=== PATIENT | male | born 1990 | race African-American/Black ===

== ENCOUNTER 2021-03-24 17:03 | Emergency (ER) | payer SELFPAY ==
[2021-03-24 17:24] VITALS: BP 127/85; PULSE 100; BMI 45.5
[2021-03-24 19:16] LABS: BASO % 0.5 % (0-2.0); EOS % 0.8 % (0-4.5); HEMATOCRIT 42.2 % (35.4-49); HEMOGLOBIN 14.8 GM/dL (11.7-16.9); LYMPH % 10.6 % (8-40); MCH 29.6 pg (25.7-33.7); MEAN CELL VOLUME 84.5 fl (80-96); MEAN PLT VOLUME 8.1 fl (7.5-11.1); MONO % 7.6 % (3.8-10.2); NEUT % 80.5 % (42.8-82.8); PLATELET COUNT 307 10^3/uL (134-434); RBC 4.99 M/mm3 (4.00-5.60); RDW 15.3 % (11.9-15.9); WHITE BLOOD COUNT 8.3 K/mm3 (4.0-10.0)
[2021-03-24 19:36] LABS: CHLORIDE 105 mmol/L (98-107); SODIUM 138 mmol/L (136-145)
[2021-03-24 19:38] LABS: ALBUMIN 4.3 g/dl (3.4-5.0); ANION GAP 9 MMOL/L (8-16); BLOOD UREA NITROGEN 16.3 mg/dL (7-18); CALCIUM 9.6 mg/dL (8.5-10.1); CO2 24 mmol/L (21-32); GLUCOSE,RANDOM 92 mg/dL (74-106)
[2021-03-24 19:38] LABS: URINE APPEARANCE CLEAR; URINE BILIRUBIN NEGATIVE (NEGATIVE); URINE COLOR DK YELLOW; URINE GLUCOSE (UA) NEGATIVE (NEGATIVE); URINE KETONE 2+ (NEGATIVE); URINE LEUK ESTERASE NEGATIVE (NEGATIVE); URINE NITRITE NEGATIVE (NEGATIVE); URINE PROTEIN NEGATIVE (NEGATIVE)
[2021-03-24 19:41] LABS: SGOT/AST 29 U/L (15-37); SGPT/ALT 39 U/L (13-61)
[2021-03-24 19:42] LABS: CREATININE 0.9 mg/dL (0.55-1.3)
[2021-03-24 19:43] LABS: BILIRUBIN,TOTAL 0.5 mg/dL (0.2-1); TOT PROT 8.3 g/dl (6.4-8.2)
[2021-03-24 19:44] LABS: ALK PHOS 67 U/L (45-117)
[2021-03-24] MEDS ORDERED: hydrOXYzine PAMOATE 50 MG CAPSULE (FP) PO ONE (20:15)
[2021-03-24 20:27] LABS: URINE BARBITURATES NEGATIVE (NEGATIVE)
[2021-03-24 20:28] LABS: COCAINE, UR NEGATIVE (NEGATIVE); METHADONE, UR NEGATIVE (NEGATIVE); OPIATES, URI NEGATIVE (NEGATIVE); URINE BENZODIAZEPINES NEGATIVE (NEGATIVE)
[2021-03-24 20:29] LABS: PHENCYCLIDINE,URINE NEGATIVE (NEGATIVE)
[2021-03-24 20:39] LABS: URINE AMPHETAMINES POSITIVE (NEGATIVE)
[2021-03-24] MEDS ORDERED: hydrOXYzine PAMOATE 50 MG CAPSULE (FP) ONE (20:40)
== END 2021-03-24 22:44 | disposition home or self-care (01) ==
LOC: JER 17:03
DX: F19.94 Other psychoactive substance use, unspecified with psychoactive substance-induced mood disorder (principal)
CPT/HCPCS: 36415; 80053; 80307; 81003; 84443; 85025; 93005; 93010; 99284-25